=== PATIENT | female | born 1980 | race Caucasian/White ===

== ENCOUNTER 2017-03-13 01:50 | Emergency (ER) | payer SELFPAY ==
[~2017-03-13] VITALS: Ht 160 cm; Wt 65.0 kg
[2017-03-13 01:50] VITALS: Ht 160 cm; Wt 65.0 kg
[~2017-03-13 01:50] MED LIST: DIPHENHYDRAMINE 50 MG INJ ONE; HALOPERIDOL 5 MG INJ ONE; LORAZEPAM 2 MG INJ ONE
[2017-03-13 02:00] LABS: URINE BLOOD (Dip) POC Trace-intact (NEGATIVE)
[2017-03-13] MEDS ORDERED: LORAZEPAM 2 MG INJ IM ONE (02:00)
[2017-03-13] MEDS ORDERED: DIPHENHYDRAMINE 50 MG INJ IM ONE (02:00)
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
[2017-03-13] MEDS ORDERED: HALOPERIDOL 5 MG INJ IM ONE (02:30)
[2017-03-13 02:41] LABS: ADD UMIC NO; UR ASCORBIC ACID NEGATIVE (NEGATIVE); UR BILIRUBIN (Dip) NEGATIVE (NEGATIVE); UR BLOOD (Dip) NEGATIVE (NEGATIVE); UR CLARITY CLEAR (CLEAR); UR COLOR STRAW (YELLOW); UR GLUCOSE (Dip) NEGATIVE (NEGATIVE); UR KETONES (Dip) NEGATIVE (NEGATIVE); UR LEUKOCYTE ESTERASE (Dip) NEGATIVE Leu/ul (NEGATIVE); UR NITRITE (Dip) NEGATIVE (NEGATIVE); UR SPECIFIC GRAVITY (Dip) 1.002 (1.003-1.030); UR TOTAL PROTEIN (Dip) NEGATIVE (NEGATIVE); UR UROBILINOGEN (Dip) NEGATIVE (NEGATIVE)
[2017-03-13 03:14] LABS: CANNABINOIDS Positive (NEGATIVE)
[2017-03-13 03:16] LABS: BARBITURATES Negative (NEGATIVE); BENZODIAZEPINES Negative (NEGATIVE); COCAINE Negative (NEGATIVE); OPIATES Negative (NEGATIVE)
[2017-03-13 04:26] LABS: ALANINE AMINOTRANSFERASE 32 IU/L (13-69); ALBUMIN 4.7 g/dl (3.3-4.9); ALBUMIN/GLOBULIN RATIO 1.42; ALKALINE PHOSPHATASE 38 IU/L (42-121); ANION GAP 18 (8-16); ASPARTATE AMINO TRANSFERASE 31 IU/L (15-46); BILIRUBIN,INDIRECT 0.2 mg/dl (0-1.1); BILIRUBIN,TOTAL 0.2 mg/dl (0.2-1.3); BLOOD UREA NITROGEN 6 mg/dl (7-20); CALCIUM 9.1 mg/dl (8.4-10.2); CARBON DIOXIDE 26 mmol/L (21-31); CHLORIDE 112 mmol/L (97-110); CREATININE 0.86 mg/dl (0.44-1.00); GLUCOSE 92 mg/dl (70-220); POTASSIUM 4.2 mmol/L (3.5-5.1); SODIUM 152 mmol/L (135-144)
[2017-03-13 04:30] LABS: BASOPHIL # 0.1 10^3/ul (0.0-0.1); BASOPHILS % 0.9 % (0.0-2.0); EOSINOPHILS % 0.4 % (0.0-7.0); HEMATOCRIT 41.2 % (37.0-47.0); HEMOGLOBIN 13.7 g/dl (12.0-16.0); LYMPHOCYTES % 42.6 % (15.0-51.0); MEAN CORPUSCULAR HEMOGLOBIN 31.1 pg (29.0-33.0); MEAN CORPUSCULAR HGB CONC 33.3 g/dl (32.0-37.0); MEAN CORPUSCULAR VOLUME 93.4 fl (82.0-101.0); MEAN PLATELET VOLUME 9.7 fl (7.4-10.4); MONOCYTE # 0.6 10^3/ul (0.3-0.9); MONOCYTES % 8.3 % (0.0-11.0); NEUTROPHIL # 3.3 10^3/ul (1.6-7.5); NEUTROPHILS % 47.5 % (39.0-77.0); PLATELET COUNT 280 10^3/UL (140-415); RED BLOOD COUNT 4.41 10^6/ul (4.20-5.40)
[2017-03-13 04:37] LABS: ACETAMINOPHEN < 10.0 ug/ml (10.0-30.0); SALICYLATE < 1.0 mg/dl (5.0-30.0)
[2017-03-13] MEDS ORDERED: SOD CHLORIDE 0.9% 1,000 ML IV ONE ×2 (05:00)
[2017-03-13] MEDS ORDERED: CHLORDIAZEPOXIDE 25 MG CAP PO ONE (10:30)
[2017-03-13 13:06] VITALS: BP 87/68; PULSE 72; RESP 18; TEMP 98
== END 2017-03-13 14:10 | disposition home or self-care (01) ==
LOC: E/R 01:50
DX: F29 Unspecified psychosis not due to a substance or known physiological condition (principal); R40.2232 Coma scale, best verbal response, inappropriate words, at arrival to emergency department; F10.120 Alcohol abuse with intoxication, uncomplicated; F12.10 Cannabis abuse, uncomplicated; R40.2142 Coma scale, eyes open, spontaneous, at arrival to emergency department; R40.2362 Coma scale, best motor response, obeys commands, at arrival to emergency department
CPT/HCPCS: 36415; 80053; 80306; 80307; 81003; 84703; 85025; 96372; 99284; J1200; J1630; J2060; J7030

== ENCOUNTER 2017-09-01 21:51 | Emergency (ER) | END 2017-09-02 10:01 | disposition home or self-care (01) ==

== ENCOUNTER 2018-04-20 15:49 | Emergency (ER) | END 2018-04-20 16:29 | disposition home or self-care (01) ==